=== PATIENT | male | born 1955 | race Two or more races ===

== ENCOUNTER → 2024-04-22 | Outpatient (CLI) | payer MEDICARE, OTHER ==
[~2024-04-22] MED LIST: LOSA-534 PO; METF-371 PO; PRAV20TA3
== END | disposition home or self-care (01) ==
LOC: LAB 08:53
PROVIDERS: ATTEND Urology
DX: R97.20 Elevated prostate specific antigen [PSA] (principal)
CPT/HCPCS: 84153

== ENCOUNTER 2024-11-19 13:59 | Inpatient (IN) | payer MEDICARE, OTHER ==
[~2024-11-19] VITALS: Ht 162.6 cm; Wt 65.0 kg
[~2024-11-19 13:59] MED LIST changes: +DOCU-94 PO; -METF-371 PO
[2024-11-19 14:14] VITALS: RESP 13; O2SAT 96
--- NOTE | 2024-11-19 15:39 | ED.PDOC ---
General HPI Comments 69-year-old male who presents to the ED via EMS complaint of blood in urine. Patient is bed-bound and nonverbal status post brain surgery and presents with spouse who states that patient has Thorpe catheter in place and states today she noticed dark red blood in Thorpe catheter. Patient's spouse called primary care provider and was told to come to the ED further evaluation. Patient in the ED has Thorpe catheter in place for history of enlarged prostate and urinary retention and has noted bloody urine draining into Thorpe bag but no associated blood clots. Patient's spouse states that patient has had a Thorpe in place since February and has a history of recurrent UTIs and history of kidney stones since Thorpe catheter was placed. Patient in the ED otherwise has stable vitals including blood pressure 130/66 started 7.9 F heart rate 85 and O2 sat of 95% on room air. Chief Complaint: Urinary Time Seen by MD: 15:36 Reviewed notes: Medications, Allergies Allergies: Coded Allergies: NO KNOWN ALLERGIES (Unverified , 03/15/24) Home Meds Reported Medications Docusate Sodium (Colace) 100 Mg Cap, 1 CAP PO BID, #30 CAP 06/26/24 Pravastatin Sodium (PRAVACHOL TABLET) 20 Mg Tb, for HU 03/16/24 Losartan Potassium (Losartan Potassium) 50 Mg Tab, 1 TAB PO DAILY 03/16/24 Information Source: Patient Mode of Arrival: EMS Past Medical History PAST MEDICAL HISTORY: CVA Past Medical History (Other): BPH Surgical History: Denies all surgeries Family History Family History: Reviewed,noncontributory to illness Social History Smoker: Non-Smoker Alcohol: Denies ETOH Use Drugs: Denies Drug Use Lives In: Home, Assisted Care Unable to Obtain due to: Altered Mental Status Physical Exam General Appearance: No Apparent Distress HEENT: PERRL/EOMI, Other (Moist mucous membranes.) Neck: Full Range of Motion, Non-Tender, Normal Inspection, Supple Respiratory: Lungs Clear, No Accessory Muscle Use, No Respiratory Distress, Normal Breath Sounds Cardiovascular: No Edema, No JVD, Regular Rate/Rhythm Breast Exam: Deferred Gastrointestinal: Non Tender, Soft Genitalia: Other (Thorpe catheter in place. Bloody urine in the collection bag.) Pelvic: Deferred Rectal: Deferred Extremities: Non-tender, No pedal edema Neurologic: Alert, Other (Nonverbal) Cerebellar Function: NOT DONE Reflexes: NOT DONE Skin: Dry, Normal Color, Warm Lymphatic: NOT DONE Was a procedure done? Was a procedure done?: No Differential Diagnosis Kidney stone (Female): N/A Kidney stone (Male): Pyelonephritis, Urolithiasis, Urinary tract infection Penile/Scrotal: N/A Urinary Problem (Male): Prostatitis, Renal Failure, Urethritis, Other (hydronephrosis, sepsis) Urinary Problem (Female): N/A X-Ray, Labs, Meds, VS Vital Signs Date Time Temp Pulse Resp B/P (MAP) Pulse Ox O2 Delivery O2 Flow Rate FiO2 11/19/24 18:14 61 13 138/75 11/19/24 18:00 61 13 138/75 (96) 94 11/19/24 17:44 63 17 138/82 11/19/24 16:14 64 16 144/69 (94) 96 11/19/24 14:14 13 96 Room Air* 0 21 11/19/24 14:14 98.6 69 13 119/73 (88) 96 98.6 11/19/24 14:04 97.9 85 15 130/66 95 97.9 Lab Test 11/19/24 16:49 11/19/24 14:19 Range/Units White Blood Count 4.7 4.4-10.8 10^3/uL Red Blood Count 5.13 4.5-5.90 10^6/uL Hemoglobin 15.8 13.5-17.5 g/dL Hematocrit 44.6 41.0-53.0 % Mean Corpuscular Volume 86.9 80.0-100.0 fL Mean Corpuscular Hemoglobin 30.8 28.0-32.0 pg Mean Corpuscular Hemoglobin Concent 35.4 32.0-36.0 g/dL Red Cell Distribution Width 15.1 H 11.8-14.3 % Platelet Count 152 140-450 10^3/uL Mean Platelet Volume 7.4 6.9-10.8 fL Neutrophils (%) (Auto) 60.9 37.0-80.0 % Lymphocytes (%) (Auto) 27.3 10.0-50.0 % Monocytes (%) (Auto) 9.3 0.0-12.0 % Eosinophils (%) (Auto) 1.2 0.0-7.0 % Basophils (%) (Auto) 1.3 0.0-2.0 % Neutrophils # (Auto) 2.8 1.6-8.6 10 ^3/uL Lymphocytes # (Auto) 1.3 0.4-5.4 10 ^3/uL Monocytes # (Auto) 0.4 0-1.3 10 ^3/uL Eosinophils # (Auto) 0.1 0-0.8 10 ^3/uL Basophils # (Auto) 0.1 0-0.2 10 ^3/uL Nucleated Red Blood Cells 0.4 % Sodium Level 136 136-145 mmol/L Potassium Level 4.4 3.5-5.1 mmol/L Chloride Level 103 98-107 mmol/L Carbon Dioxide Level 26 20-31 mmol/L Anion Gap 7 5-15 Blood Urea Nitrogen 15 9-23 mg/dL Creatinine 0.73 0.700-1.30 mg/dL Glomerular Filtration Rate Calc 98 >90 mL/min BUN/Creatinine Ratio 20.5 H 10.0-20.0 Serum Glucose 75 74-106 mg/dL Lactic Acid Level 1.1 0.4-2.0 mmol/L Calcium Level 8.8 8.7-10.4 mg/dL Urine Color Light-red Yellow Urine Clarity Ex.turbid Clear Urine pH 7.0 5.0-9.0 Urine Specific [place] 1.009 1.001-1.035 Urine Protein Trace H Negative Urine Ketones Negative Negative Urine Blood 3+ H Negative /uL Urine Nitrite Negative Negative Urine Bilirubin Negative Negative Urine Urobilinogen Normal Negative mg/dL Urine Leukocyte Esterase 3+ Negative /uL Urine RBC 4818 0 - 3 /hpf Urine WBC Clumps Present None Seen /hpf Urine Microscopic WBC 418 H 0-3 /HPF Urine Squamous Epithelial Cells None seen <5 /hpf Urine Bacteria None seen None Seen /hpf Urine Glucose Normal Normal mg/dL Current Medications Medications (Trade) Dose Ordered Sig/Joseluis Route Start Time Stop Time Status Last Admin Sodium Chloride 1,000 ml @ 1,000 mls/hr Q1H ONCE IV 11/19/24 16:15 11/19/24 17:14 DC 11/19/24 17:18 Meropenem 50 ml @ 50 mls/hr ONCE ONCE IV 11/19/24 16:15 11/19/24 17:14 DC 11/19/24 17:18 Morphine Sulfate 4 mg ONCE ONCE IV 11/19/24 17:30 11/19/24 17:31 DC 11/19/24 17:44 Ondansetron HCl (Zofran) 4 mg ONCE ONCE IV 11/19/24 17:30 11/19/24 17:31 DC 11/19/24 17:[address] [address] Ph: [phone] DIAGNOSTIC IMAGING Diagnostic Imaging Report : [id number] Signed PATIENT: MARIANA ZAMARRIPA ACCT: [id number] UNIT: [id number] : 1955 LOC: ER ROOM / BED: / AGE / SEX: 69 / M ADM STATUS: REG ER SERVICE 1608 ORDERING PHYSICIAN: JENNIFFER DOVE MD PROCEDURE(s): ABPL - CT AB PEL WO CON-NO ORAL OR IV REASON: hematuria ORDER NUMBER(s): [id number], ACCESSION NUMBER(s): [id number] Exam: CT CT AB PEL WO CON-NO ORAL OR IV History: hematuria Comparison Study: CT CT AB PEL WO CON-NO ORAL OR IV on DOS: 03/15/24 TECHNIQUE: Multidetector CT of the abdomen pelvis without IV contrast. Axial, coronal and sagittal multiplanar reformats were obtained from the axial data set by the technologist. Radiation Dose Information: CT Dose: CTDI volume is 6.59 mGy. Dose-length product is 3.92 mGy*cm FINDINGS: Bilateral lower lobe ground glass and solid opacities with bilateral posterior lower lobe pleural thickening. Partially visualized heart is unremarkable. Liver, spleen, gallbladder, pancreas and adrenal glands unremarkable. 1.6 cm right renal upper pole cysts. Mild bilateral hydro nephrosis with no obstructing calculus noted. Otherwise, kidneys and ureters unremarkable. Minimally distended bladder loss of in the sludge is most likely urinary partially visualized thorpe catheter terminating within the prostatic urethra. Enlarged prostate measuring 4.3 x 5.1 by 5.7 cm. Stomach is unremarkable. Small bowel loops are unremarkable. Appendix is not definitely visualized. Large amount of fecal material within the colon with asymmetric Posterior Distal rectal wall thickening. There is perirectal edema. No evidence of intraperitoneal free air. No evidence of aortic aneurysm. Heavy atherosclerotic calcification of the aorta and bilateral iliacs. No significant lymphadenopathy. Fluid/ cystic structure within the right inguinal canal measuring up to 2.5 x 3.8 by 4.2 cm. Mild lower back subcutaneous fat stranding. Diffuse demineralization. Severe degenerative changes of bilateral SI joints. IMPRESSION: Bilateral lower lobe ground-glass opacities which may represent atelectasis with infectious/inflammatory process not excluded. Constipation with perirectal fat stranding which may represent stercoral colitis. Mild distal rectal wall thickening which may be due to inadequate distention with neoplasm not excluded. Proctoscopy is recommended for evaluation. Enlarged prostate recommend correlation with PSA. Malpositioned thorpe catheter terminating within the prostatic urethra. Recommend repositioning. Mild bilateral hydronephrosis with no obstructing calculus noted. ATED BY: NANCY CARTY DO DICTATED DATE/TIME: 11/19/241702 SIGNED BY: NANCY CARTY DO SIGNED DATE/TIME: 11/19/241702 CC: X-Ray, Labs, Meds, VS Comment 69-year-old male with a history of CVA, BPH, prior pseudomonal UTI and indwelling Thorpe catheter brought in by EMS from home for evaluation of bloody urine Vitals unremarkable Exam remarkable for indwelling Thorpe catheter with bloody urine in the collection bag Rhythm strip independently interpreted by me: Sinus rhythm, rate 5, no ectopy. CT abdomen and pelvis IMPRESSION: Bilateral lower lobe ground-glass opacities which may represent atelectasis with infectious/inflammatory process not excluded. Constipation with perirectal fat stranding which may represent stercoral c olitis. Mild distal rectal wall thickening which may be due to inadequate distention with neoplasm not excluded. Proctoscopy is recommended for evaluation. Enlarged prostate recommend correlation with PSA. Malpositioned thorpe catheter terminating within the prostatic urethra. Recommend repositioning. Mild bilateral hydronephrosis with no obstructing calculus noted. CBC, basic metabolic panel and lactate unremarkable. UA positive for blood, WBCs and RBCs Patient treated with the following in the ED: Existing Thorpe catheter was removed and new Thorpe catheter was inserted. Meropenem 1 g IV, 1 L 0.9 normal saline IV bolus On re-evaluation, exam is unchanged. Vitals were stable. Plan is to admit the patient for IV antibiotics, Urology evaluation. Time of 1ST Reevaluation: 19:00 Reevaluation 1ST: Improved Patient Education/Counseling: Other (Patient nonverbal) Family Education/Counseling: Diagnosis, Treatment SEPSIS Sepsis Screen Date sepsis recognized/suspect: Nov 19, 2024 Time Sepsis recognized/suspect: 1413 Recent Procedure: No On Antibiotic Therapy: No Respiratory Rate >20: No Heart Rate >90: No Temp<36 C (96.8 F) or >38.3 C: No SBP <90 or MAP <65 mmHG: No New Acute Mental Status Change: No Is the patient on CPAP, BIPAP,: No Physician Orders Blood Culture (11/19/24 16:08) Urine Bacterial Culture (11/19/24 16:08) Ct Ab Pel Wo Con-No Oral Or Iv (11/19/24 16:08) D/C Thorpe (11/19/24 17:48) Insert/Manage Urinary Catheter QSHIFT (11/19/24 17:48) Vital Signs Date Time Temp Pulse Resp B/P (MAP) Pulse Ox O2 Delivery O2 Flow Rate FiO2 11/19/24 18:14 61 13 138/75 11/19/24 18:00 61 13 138/75 (96) 94 11/19/24 17:44 63 17 138/82 11/19/24 16:14 64 16 144/69 (94) 96 11/19/24 14:14 13 96 Room Air* 0 21 11/19/24 14:14 98.6 69 13 119/73 (88) 96 98.6 11/19/24 14:04 97.9 85 15 130/66 95 97.9 Laboratory Tests Test 11/19/24 16:49 Lactic Acid Level 1.1 mmol/L (0.4-2.0) White Blood Count 4.7 10^3/uL (4.4-10.8) Medications Medications Dose Ordered Sig/Joseluis Route Start Time Stop Time Status Last Admin Dose Admin Meropenem 50 ml @ 50 mls/hr ONCE ONCE IV 11/19/24 16:15 11/19/24 17:14 DC 11/19/24 17:18 Morphine Sulfate 4 mg ONCE ONCE IV 11/19/24 17:30 11/19/24 17:31 DC 11/19/24 17:44 Ondansetron HCl 4 mg ONCE ONCE IV 11/19/24 17:30 11/19/24 17:31 DC 11/19/24 17:41 Sodium Chloride 1,000 ml @ 1,000 mls/hr Q1H ONCE IV 11/19/24 16:15 11/19/24 17:14 DC 11/19/24 17:18 Departure 1 Departure Time of Disposition: 19:00 Impression: Primary Impression: Complication of Thorpe catheter Additional Impressions: UTI (urinary tract infection) Stercoral colitis Disposition: ADMITTED INPATIENT Admit to: Med Surg Condition: Guarded Critical Care Note Critical Care Time?: No Stability Stability form required: No Heart Score Heart Score: Heart Score Response (Comments) Value History N/A 0 EKG N/A 0 Age N/A 0 Risk Factors N/A 0 Troponin N/A 0 Total 0 I personally scribed for JENNIFFER DOVE MD ([facility]) on 11/19/24 at 15:38. Electronically submitted by Grayson Peralta ([facility]). I personally scribed for JENNIFFER DOVE MD ([email or web address]) on 11/19/24 at 15:43. Electronically submitted by Grayson Peralta ([facility] I personally scribed for JENNIFFER DOVE MD ([email or web address]) on 11/19/24 at 19:26. Electronically submitted by Grayson Peralta ([facility]). JENNIFFER DOVE MD Nov 19, 2024 15:38
[2024-11-19 17:00] LABS: Urine Protein, UAD TRACE (Negative); Urine WBC Clumps PRESENT /hpf (None Seen)
[2024-11-19 17:03] LABS: Hematocrit 44.6 % (41.0-53.0); Hemoglobin 15.8 g/dL (13.5-17.5); Mean Corpuscular Hemoglobin 30.8 pg (28.0-32.0); Mean Corpuscular Volume 86.9 fL (80.0-100.0); Nucleated Red Blood Cells % 0.4 %
--- NOTE | 2024-11-19 17:06 | DVH ---
Exam: CT CT AB PEL WO CON-NO ORAL OR IV History: hematuria Comparison Study: CT CT AB PEL WO CON-NO ORAL OR IV on DOS: 03/15/24 TECHNIQUE: Multidetector CT of the abdomen pelvis without IV contrast. Axial, coronal and sagittal mu ltiplanar reformats were obtained from the axial data set by the technologist. Radiation Dose Information: CT Dose: CTDI volume is 6.59 mGy. Dose-length product is 3.92 mGy*cm FINDINGS: Bilateral lower lobe ground glass and solid opacities with bilateral posterior lower lobe pleural thi ckening. Partially visualized heart is unremarkable. Liver, spleen, gallbladder, pancreas and adrenal glands unremarkable. 1.6 cm right renal upper pole cysts. Mild bilateral hydro nephrosis with no obstructing calculus note d. Otherwise, kidneys and ureters unremarkable. Minimally distended bladder loss of in the sludge is most likely urinary partially visualized thorpe catheter terminating within the prostatic urethra. En larged prostate measuring 4.3 x 5.1 by 5.7 cm. Stomach is unremarkable. Small bowel loops are unremarkable. Appendix is not definitely visualized. Large amount of fecal material within the colon with asymmetric Posterior Distal rectal wall thicken ing. There is perirectal edema. No evidence of intraperitoneal free air. No evidence of aortic aneurysm. Heavy atherosclerotic calcification of the aorta and bilateral iliacs . No significant lymphadenopathy. Fluid/ cystic structure within the right inguinal canal measuring up to 2.5 x 3.8 by 4.2 cm. Mild lower back subcutaneous fat stranding. Diffuse demineralization. Severe degenerative changes of bilateral SI joints. IMPRESSION: Bilateral lower lobe ground-glass opacities which may represent atelectasis with infectious/inflammat ory process not excluded. Constipation with perirectal fat stranding which may represent stercoral colitis. Mild distal rectal wall thickening which may be due to inadequate distention with neoplasm not exclu ded. Proctoscopy is recommended for evaluation. Enlarged prostate recommend correlation with PSA. Malpositioned thorpe catheter terminating within the prostatic urethra. Recommend repositioning. Mild bilateral hydronephrosis with no obstructing calculus noted.
[2024-11-19 17:14] LABS: Chloride 103 mmol/L (98-107); Potassium 4.4 mmol/L (3.5-5.1); Sodium 136 mmol/L (136-145)
[2024-11-19 17:15] LABS: Anion Gap 7 (5-15); Carbon Dioxide 26 mmol/L (20-31)
[2024-11-19 17:16] LABS: Calcium 8.8 mg/dL (8.7-10.4)
[2024-11-19] MEDS: MEROPENEM 1GM IVPB 50 ML IV ONE (17:18)
[2024-11-19] MEDS: SODIUM CHLORIDE 0.9% 1,000 ML IV ONE (17:18)
[2024-11-19 17:20] LABS: BUN/Creatinine Ratio 20.5 (10.0-20.0); Blood Urea Nitrogen 15 mg/dL (9-23); Glucose 75 mg/dL (74-106)
[2024-11-19] MEDS: ONDANSETRON HCL 4 MG/2 ML VIAL IV ONE (17:41)
[2024-11-19] MEDS: MORPHINE SULFATE 4 MG/ML SYR/VIAL IV ONE (17:44)
[2024-11-19] MEDS ORDERED: DEXTROSE (50%) 50ML SYRG IV PRN (18:45)
[2024-11-19] MEDS ORDERED: ONDANSETRON HCL 4 MG/2 ML VIAL IV PRN (18:45)
[2024-11-19 21:28] VITALS: BP 125/78; PULSE 82; RESP 17; O2SAT 91
[2024-11-19 21:40] VITALS: BP 125/78; PULSE 82; RESP 17; TEMP 85.1; O2SAT 91
[2024-11-19] MEDS: ACCU-CHEK COMFORT CURVE STRIP VI SCH (22:00)
[2024-11-19] MEDS: ACETAMINOPHEN 325 MG TAB PO PRN (22:28)
[2024-11-19] MEDS: PRAVASTATIN SODIUM 20 MG TAB PO SCH (22:28)
[2024-11-19] MEDS: InsuLIN REG 1unit/0.01ml Soln (100units/ml) SC SCH (22:46)
--- NOTE | 2024-11-19 23:12 | DVHHP2 ---
History of Present Illness Reason for Visit: Blood in the urine History of Present Illness 69-year-old male presents for evaluation of blood in the urine. Patient with a chronic Thorpe catheter presents after his noticed blood in the urine for the past couple of days. During my assessment urine is clear no blood noted. Patient has a history hemorrhagic CVA, bed ridden and nonverbal. Past Medical History CVA, diabetes mellitus, dyslipidemia Past Surgical History None Family History Noncontributory Smoke: No ALCOHOL: none Drugs: None Lives: with Family Review of Systems Review of Systems Review of systems can not be completed, patient is nonverbal Allergies: Coded Allergies: NO KNOWN ALLERGIES (Unverified , 03/15/24) Medications Current Medications Medications Dose Ordered Sig/Joseluis Route Start Time Stop Time Status Last Admin Dose Admin Losartan Potassium 50 mg DAILY PO 11/20/24 10:00 Pravastatin Sodium 20 mg HS PO 11/19/24 22:00 11/19/24 22:28 20 MG Ceftriaxone Sodium 50 ml @ 100 mls/hr DAILY@09 IV 11/20/24 09:00 Diagnostic Test (Pha) 1 strip ACHS 11/19/24 22:00 11/19/24 22:00 1 STRIP Insulin Human Regular ACHS SC 11/19/24 22:00 11/19/24 22:46 2 UNITS Dextrose 50 ml UD PRN IV 11/19/24 18:45 Ondansetron HCl 4 mg Q4HP PRN IV 11/19/24 18:45 Acetaminophen 650 mg Q6HP PRN PO 11/19/24 18:45 11/19/24 22:28 650 MG Exam Vital Signs Vital Signs Date Time Temp Pulse Resp B/P (MAP) Pulse Ox O2 Delivery O2 Flow Rate FiO2 11/19/24 21:40 85.1 82 17 125/78 (94) 91 85.1 11/19/24 14:14 Room Air* 0 21 Exam Gen: 69-year-old male in no apparent distress Skin: Warm, dry, normal color and texture, no rash. HEENT: Normocephalic atraumatic, mucous membranes moist and pink. Neck: Cervical and supraclavicular nodes normal without enlargement, trachea is midline, thyroid gland is normal without masses. Pulmonary: Clear to auscultation and percussion bilaterally. Cardiac: Regular rate and rhythm. No murmur Abdomen: Soft, nontender, nondistended, bowel sounds present all 4 quadrants, no guarding, no rigidity, no organomegaly. Extremities: No cyanosis, clubbing, no edema Neuro: Nonverbal Labs/Xrays ORDERING PHYSICIAN: JENNIFFER DOVE MD PROCEDURE(s): ABPL - CT AB PEL WO CON-NO ORAL OR IV REASON: hematuria ORDER NUMBER(s): [id number], ACCESSION NUMBER(s): [id number] Exam: CT CT AB PEL WO CON-NO ORAL OR IV History: hematuria Comparison Study: CT CT AB PEL WO CON-NO ORAL OR IV on DOS: 03/15/24 TECHNIQUE: Multidetector CT of the abdomen pelvis without IV contrast. Axial, coronal and sagittal multiplanar reformats were obtained from the axial data set by the technologist. Radiation Dose Information: CT Dose: CTDI volume is 6.59 mGy. Dose-length product is 3.92 mGy*cm FINDINGS: Bilateral lower lobe ground glass and solid opacities with bilateral posterior lower lobe pleural thickening. Partially visualized heart is unremarkable. Liver, spleen, gallbladder, pancreas and adrenal glands unremarkable. 1.6 cm right renal upper pole cysts. Mild bilateral hydro nephrosis with no obstructing calculus noted. Otherwise, kidneys and ureters unremarkable. Minimally distended bladder loss of in the sludge is most likely urinary partially visualized thorpe catheter terminating within the prostatic urethra. Enlarged prostate measuring 4.3 x 5.1 by 5.7 cm. Stomach is unremarkable. Small bowel loops are unremarkable. Appendix is not definitely visualized. Large amount of fecal material within the colon with asymmetric Posterior Distal rectal wall thickening. There is perirectal edema. No evidence of intraperitoneal free air. No evidence of aortic aneurysm. Heavy atherosclerotic calcification of the aorta and bilateral iliacs. No significant lymphadenopathy. Fluid/ cystic structure within the right inguinal canal measuring up to 2.5 x 3.8 by 4.2 cm. Mild lower back subcutaneous fat stranding. Diffuse demineralization. Severe de generative changes of bilateral SI joints. IMPRESSION: Bilateral lower lobe ground-glass opacities which may represent atelectasis with infectious/inflammatory process not excluded. Constipation with perirectal fat stranding which may represent stercoral colitis. Mild distal rectal wall thickening which may be due to inadequate distention with neoplasm not excluded. Proctoscopy is recommended for evaluation. Enlarged prostate recommend correlation with PSA. Malpositioned thorpe catheter terminating within the prostatic urethra. Recommend repositioning. Mild bilateral hydronephrosis with no obstructing calculus noted. Labs Test 11/19/24 22:36 11/19/24 16:49 11/19/24 14:19 Range/Units POC Glucose 137 H 70-106 mg/dl White Blood Count 4.7 4.4-10.8 10^3/uL Red Blood Count 5.13 4.5-5.90 10^6/uL Hemoglobin 15.8 13.5-17.5 g/dL Hematocrit 44.6 41.0-53.0 % Mean Corpuscular Volume 86.9 80.0-100.0 fL Mean Corpuscular Hemoglobin 30.8 28.0-32.0 pg Mean Corpuscular Hemoglobin Concent 35.4 32.0-36.0 g/dL Red Cell Distribution Width 15.1 H 11.8-14.3 % Platelet Count 152 140-450 10^3/uL Mean Platelet Volume 7.4 6.9-10.8 fL Neutrophils (%) (Auto) 60.9 37.0-80.0 % Lymphocytes (%) (Auto) 27.3 10.0-50.0 % Monocytes (%) (Auto) 9.3 0.0-12.0 % Eosinophils (%) (Auto) 1.2 0.0-7.0 % Basophils (%) (Auto) 1.3 0.0-2.0 % Neutrophils # (Auto) 2.8 1.6-8.6 10 ^3/uL Lymphocytes # (Auto) 1.3 0.4-5.4 10 ^3/uL Monocytes # (Auto) 0.4 0-1.3 10 ^3/uL Eosinophils # (Auto) 0.1 0-0.8 10 ^3/uL Basophils # (Auto) 0.1 0-0.2 10 ^3/uL Nucleated Red Blood Cells 0.4 % Sodium Level 136 136-145 mmol/L Potassium Level 4.4 3.5-5.1 mmol/L Chloride Level 103 98-107 mmol/L Carbon Dioxide Level 26 20-31 mmol/L Anion Gap 7 5-15 Blood Urea Nitrogen 15 9-23 mg/dL Creatinine 0.73 0.700-1.30 mg/dL Glomerular Filtration Rate Calc 98 >90 mL/min BUN/Creatinine Ratio 20.5 H 10.0-20.0 Serum Glucose 75 74-106 mg/dL Lactic Acid Level 1.1 0.4-2.0 mmol/L Calcium Level 8.8 8.7-10.4 mg/dL Urine Color Light-red Yellow Urine Clarity Ex.turbid Clear Urine pH 7.0 5.0-9.0 Urine Specific [place] 1.009 1.001-1.035 Urine Protein Trace H Negative Urine Ketones Negative Negative Urine Blood 3+ H Negative /uL Urine Nitrite Negative Negative Urine Bilirubin Negative Negative Urine Urobilinogen Normal Negative mg/dL Urine Leukocyte Esterase 3+ Negative /uL Urine RBC 4818 0 - 3 /hpf Urine WBC Clumps Present None Seen /hpf Urine Microscopic WBC 418 H 0-3 /HPF Urine Squamous Epithelial Cells None seen <5 /hpf Urine Bacteria None seen None Seen /hpf Urine Glucose Normal Normal mg/dL SEPSIS Sepsis Screen Date sepsis recognized/suspect: Nov 19, 2024 Time Sepsis recognized/suspect: 1413 Recent Procedure: No On Antibiotic Therapy: No Respiratory Rate >20: No Heart Rate >90: No Temp<36 C (96.8 F) or >38.3 C: No SBP <90 or MAP <65 mmHG: No New Acute Mental Status Change: No Is the patient on CPAP, BIPAP,: No Physician Orders Blood Culture (11/19/24 16:08) Urine Bacterial Culture (11/19/24 16:08) Ct Ab Pel Wo Con-No Oral Or Iv (11/19/24 16:08) D/C Thorpe (11/19/24 17:48) Insert/Manage Urinary Catheter QSHIFT (11/19/24 17:48) Losartan Tablet (Cozaar Tablet) (11/20/24 10:00) Pravastatin Sodium Tablet (Pravachol Tab (11/19/24 22:00) Consistent Carb(Ccho)Diabetes (11/20/24 Breakfast) Ceftriaxone 1gm/50ml (Rocephin) (11/20/24 09:00) Basic Metabolic Panel (11/20/24 04:00) Glucose Blood (Accu-Chek Comfort Curve T (11/19/24 22:00) Insulin R (Human) (Insulin R) (11/19/24 22:00) Dextrose 50% Syringe (11/19/24 18:45) Admit (11/19/24 18:42) Ondansetron Hcl (Zofran) (11/19/24 18:45) Condition: Stable (11/19/24 18:42) Acetaminophen Tablet (Tylenol Tablet) (11/19/24 18:45) Bedrest With Bathroom Privileg (11/19/24 18:42) Vital Signs Date Time Temp Pulse Resp B/P (MAP) Pulse Ox O2 Delivery O2 Flow Rate FiO2 11/19/24 21:40 85.1 82 17 125/78 (94) 91 85.1 11/19/24 20:00 73 10 127/76 (93) 95 11/19/24 18:14 61 13 138/75 11/19/24 18:00 61 13 138/75 (96) 94 11/19/24 17:44 63 17 138/82 11/19/24 16:14 64 16 144/69 (94) 96 Laboratory Tests Test 11/19/24 16:49 Lactic Acid Level 1.1 mmol/L (0.4-2.0) White Blood Count 4.7 10^3/uL (4.4-10.8) Medications Medications Dose Ordered Sig/Joseluis Route Start Time Stop Time Status Last Admin Dose Admin Acetaminophen 650 mg Q6HP PRN PO 11/19/24 18:45 11/19/24 22:28 650 MG Diagnostic Test (Pha) 1 strip ACHS 11/19/24 22:00 11/19/24 22:00 1 STRIP Insulin Human Regular ACHS SC 11/19/24 22:00 11/19/24 22:46 2 UNITS Meropenem 50 ml @ 50 mls/hr ONCE ONCE IV 11/19/24 16:15 11/19/24 17:14 DC 11/19/24 17:18 50 MLS/HR Morphine Sulfate 4 mg ONCE ONCE IV 11/19/24 17:30 11/19/24 17:31 DC 11/19/24 17:44 4 MG Ondansetron HCl 4 mg ONCE ONCE IV 11/19/24 17:30 11/19/24 17:31 DC 11/19/24 17:41 4 MG Pravastatin Sodium 20 mg HS PO 11/19/24 22:00 11/19/24 22:28 20 MG Sodium Chloride 1,000 ml @ 1,000 mls/hr Q1H ONCE IV 11/19/24 16:15 11/19/24 17:14 DC 11/19/24 17:18 1,000 MLS/HR Assessment/Plan Assessment/Plan Assessment Complicated UTI Hematuria History of CVA, nonverbal Diabetes mellitus Plan Admit the patient to [facility] to the hospitalist Rene Urine bacterial culture pending Resume home medications Continue treatment per orders. Plan discussed with: Other My Orders Orders - TRISHA GARSIA Procedure Category Date Status Time Losartan Tablet PHA 11/20/24 In Process (Cozaar Tablet) 10:00 Pravastatin Sodium PHA 11/19/24 In Process Tablet (Pravachol Tab 22:00 Consistent DIET 11/20/24 Transmitted Carb(Ccho)Diabetes Breakfast Ceftriaxone 1gm/50ml PHA 11/20/24 In Process (Rocephin) 09:00 Basic Metabolic Panel LAB 11/20/24 Verified 04:00 Glucose Blood PHA 11/19/24 In Process (Accu-Chek Comfort 22:00 Insulin R (Human) PHA 11/19/24 In Process (Insulin R) 22:00 Dextrose 50% Syringe PHA 11/19/24 In Process 18:45 Admit ADMIT 11/19/24 Transmitted 18:42 Ondansetron Hcl PHA 11/19/24 In Process (Zofran) 18:45 Condition: Stable LISA 11/19/24 In Process 18:42 Acetaminophen Tablet PHA 11/19/24 In Process (Tylenol Tablet) 18:45 Bedrest With Bathroom LISA 11/19/24 In Process Privileg 18:42 Date of Service: Nov 19, 2024 Billing Provider: TRISHA GARSIA Common Visit Codes: [id number] INP/OBS CARE (MOD) TRISHA GARSIA Nov 19, 2024 23:12
[2024-11-20] VITALS (7 sets, daily range): BP systolic 98–130; BP diastolic 59–84; PULSE 51–68; RESP 16–18; TEMP 96–97.9; O2SAT 94–96
[2024-11-20 05:47] LABS: Chloride 106 mmol/L (98-107); Potassium 4.3 mmol/L (3.5-5.1); Sodium 137 mmol/L (136-145)
[2024-11-20 05:48] LABS: Anion Gap 8 (5-15); Carbon Dioxide 23 mmol/L (20-31)
[2024-11-20 05:49] LABS: Calcium 8.8 mg/dL (8.7-10.4)
[2024-11-20 05:53] LABS: BUN/Creatinine Ratio 11.0 (10.0-20.0); Glucose 77 mg/dL (74-106)
[2024-11-20 06:02] LABS: Blood Urea Nitrogen 8 mg/dL (9-23)
[2024-11-20] MEDS: LOSARTAN POTASSIUM 50 MG TAB PO SCH (09:18)
[2024-11-20] MEDS: DOCUSATE ORAL LIQUID 100 MG/10 ML UD GT SCH (09:18)
[2024-11-20] MEDS ORDERED: DOCUSATE SOD 100 MG CAP PO SCH (10:00)
--- NOTE | 2024-11-20 12:19 | DVHPN2 ---
Reviewed: Care Plan, H&P, Labs, Medications, Previous Orders, Radiology Changes from previous H/P or p: No Changes Objective Vitals Vital Signs Date Time Temp Pulse Resp B/P (MAP) Pulse Ox O2 Delivery O2 Flow Rate FiO2 11/20/24 09:18 124/84 11/20/24 09:00 97.6 51 17 96 97.6 11/19/24 21:28 Room Air* 0 21 Intake/Output Intake and Output 11/20/24 07:00 Intake Total 1504 ml Output Total 2400 ml Balance -896 ml Intake Oral 454 ml IV Total 1050 ml Output Urine Total 2400 ml Medications Current Medications Medications Dose Ordered Sig/Joseluis Route Start Time Stop Time Status Last Admin Dose Admin Losartan Potassium 50 mg DAILY PO 11/20/24 10:00 11/20/24 09:18 50 MG Pravastatin Sodium 20 mg HS PO 11/19/24 22:00 11/19/24 22:28 20 MG Ceftriaxone Sodium 50 ml @ 100 mls/hr DAILY@09 IV 11/20/24 09:00 11/20/24 09:17 100 MLS/HR Diagnostic Test (Pha) 1 strip ACHS 11/19/24 22:00 11/20/24 05:56 1 STRIP Insulin Human Regular ACHS SC 11/19/24 22:00 11/19/24 22:46 2 UNITS Dextrose 50 ml UD PRN IV 11/19/24 18:45 Ondansetron HCl 4 mg Q4HP PRN IV 11/19/24 18:45 Acetaminophen 650 mg Q6HP PRN PO 11/19/24 18:45 11/19/24 22:28 650 MG Docusate Sodium 100 mg BID GT 11/20/24 10:00 11/20/24 09:18 100 MG Laboratory Results Laboratory Tests 11/19/24 16:49 11/20/24 05:00 Chemistry Test 11/19/24 16:49 11/20/24 05:00 Calcium Level 8.8 mg/dL (8.7-10.4) 8.8 mg/dL (8.7-10.4) Urinalysis Test 11/19/24 14:19 Urine Color Light-red (Yellow) Urine Clarity Ex.turbid (Clear) Urine pH 7.0 (5.0-9.0) Urine Specific [place] 1.009 (1.001-1.035) Urine Protein Trace (Negative) H Urine Ketones Negative (Negative) Urine Blood 3+ /uL (Negative) H Urine Nitrite Negative (Negative) Urine Bilirubin Negative (Negative) Urine Urobilinogen Normal mg/dL (Negative) Urine Leukocyte Esterase 3+ /uL (Negative) Urine RBC 4818 /hpf (0 - 3) Urine WBC Clumps Present /hpf (None Seen) Urine Microscopic WBC 418 /HPF (0-3) H Urine Squamous Epithelial Cells None seen /hpf (<5) Urine Bacteria None seen /hpf (None Seen) Urine Glucose Normal mg/dL (Normal) Microbiology Microbiology Date/Time Source Procedure Growth Status 11/19/24 14:19 Urine - [place] Urine Culture - Preliminary Resulted Labs and/or images reviewed: Labs reviewed by me, Image(s) reviewed by me Assessment/Plan Assessment/Plan Sepsis secondary to urinary tract infection: Blood cultures pending urine cultures pending; history of Pseudomonas urine infection June 2024, started on meropenem, DC Rocephin History of CVA six years ago Chronically bedridden Hypercholesterolemia: Lipitor Diabetes: Insulin sliding scale History of previous tracheostomy Chronic malnutrition Chronic indwelling thorpe for the last four months\ Time spent 55 minutes Advanced care planning 20 minutes Patient is full code Plan discussed with: Patient Date of Service: Nov 20, 2024 Billing Provider: ABHAY GARNER MD Common Visit Codes: [id number] CARE 30-74 MIN ABHAY GARNER MD Nov 20, 2024 12:19
[2024-11-20] MEDS: MEROPENEM 1GM IVPB 50 ML IV SCH (12:52)
[2024-11-20] MEDS ORDERED: MULT-1018 PO (19:31)
[2024-11-20] MEDS ORDERED: ASCO1CHW PO (19:31)
[2024-11-21] VITALS (7 sets, daily range): BP systolic 115–140; BP diastolic 73–85; PULSE 52–67; RESP 16–18; TEMP 97.5–98.3; O2SAT 95–99
--- NOTE | 2024-11-21 10:22 | DVHPN2 ---
Reviewed: Care Plan, H&P, Labs, Medications, Previous Orders, Radiology Changes from previous H/P or p: No Changes Objective Vitals Vital Signs Date Time Temp Pulse Resp B/P (MAP) Pulse Ox O2 Delivery O2 Flow Rate FiO2 11/21/24 09:30 139/83 11/21/24 08:05 52 18 99 Room Air* 0 21 11/21/24 05:00 97.9 97.9 Intake/Output Intake and Output 11/21/24 07:00 Intake Total 1154 ml Output Total 2850 ml Balance -1696 ml Intake Oral 1054 ml IV Total 100 ml Output Urine Total 2850 ml Medications Current Medications Medications Dose Ordered Sig/Joseluis Route Start Time Stop Time Status Last Admin Dose Admin Losartan Potassium 50 mg DAILY PO 11/20/24 10:00 11/21/24 09:30 50 MG Pravastatin Sodium 20 mg HS PO 11/19/24 22:00 11/20/24 21:46 20 MG Diagnostic Test (Pha) 1 strip ACHS 11/19/24 22:00 11/21/24 05:38 1 STRIP Insulin Human Regular ACHS SC 11/19/24 22:00 11/20/24 12:53 3 UNITS Dextrose 50 ml UD PRN IV 11/19/24 18:45 Ondansetron HCl 4 mg Q4HP PRN IV 11/19/24 18:45 Acetaminophen 650 mg Q6HP PRN PO 11/19/24 18:45 11/20/24 22:04 650 MG Docusate Sodium 100 mg BID GT 11/20/24 10:00 11/21/24 09:29 100 MG Meropenem 50 ml @ 17 mls/hr Q8HR IV 11/20/24 14:00 11/21/24 05:38 17 MLS/HR Laboratory Results Laboratory Tests 11/19/24 16:49 11/20/24 05:00 Urinalysis Test 11/19/24 14:19 Urine Color Light-red (Yellow) Urine Clarity Ex.turbid (Clear) Urine pH 7.0 (5.0-9.0) Urine Specific [place] 1.009 (1.001-1.035) Urine Protein Trace (Negative) H Urine Ketones Negative (Negative) Urine Blood 3+ /uL (Negative) H Urine Nitrite Negative (Negative) Urine Bilirubin Negative (Negative) Urine Urobilinogen Normal mg/dL (Negative) Urine Leukocyte Esterase 3+ /uL (Negative) Urine RBC 4818 /hpf (0 - 3) Urine WBC Clumps Present /hpf (None Seen) Urine Microscopic WBC 418 /HPF (0-3) H Urine Squamous Epithelial Cells None seen /hpf (<5) Urine Bacteria None seen /hpf (None Seen) Urine Glucose Normal mg/dL (Normal) Microbiology Microbiology Date/Time Source Procedure Growth Status 11/19/24 16:40 Blood Blood Culture - Preliminary NO GROWTH AFTER 24 HOURS OF INCUBATION. Resulted 11/19/24 14:19 Urine - [place] Urine Culture - Preliminary Resulted Labs and/or images reviewed: Labs reviewed by me, Image(s) reviewed by me Assessment/Plan Assessment/Plan Sepsis secondary to urinary tract infection: Blood cultures negative, urine cultures mixed,; send another clean sample of urine for urine culture history of Pseudomonas urine infection June 2024, started on meropenem, DC Rocephin History of CVA six years ago Chronically bedridden Hypercholesterolemia: Lipitor Diabetes: Insulin sliding scale History of previous tracheostomy Chronic malnutrition Chronic indwelling thorpe for the last four months\ Time spent 55 minutes Advanced care planning 20 minutes Patient is full code Plan discussed with: Patient My Orders Orders - ABHAY GARNER MD Procedure Category Date Status Time Meropenem 1gm Ivpb PHA 11/20/24 In Process (Merrem 1gm/50ml) 14:00 Communication Order ORDERS 11/20/24 Transmitted 12:35 Apply Z-Guard LISA 11/20/24 In Process 12:52 Communication Order ORDERS 11/21/24 Verified 10:20 Date of Service: Nov 21, 2024 Billing Provider: ABHAY GARNER MD Common Visit Codes: [id number] INP/OBS CARE(HIGH) ABHAY GARNER MD Nov 21, 2024 10:22
[2024-11-22] VITALS (7 sets, daily range): BP systolic 109–139; BP diastolic 62–88; PULSE 61–72; RESP 18–20; TEMP 97.3–98.6; O2SAT 95–97
--- NOTE | 2024-11-22 10:55 | DVHPN2 ---
Reviewed: Care Plan, H&P, Labs, Medications, Previous Orders, Radiology Changes from previous H/P or p: No Changes Objective Vitals Vital Signs Date Time Temp Pulse Resp B/P (MAP) Pulse Ox O2 Delivery O2 Flow Rate FiO2 11/22/24 08:53 98.6 61 20 109/62 (78) 97 98.6 11/21/24 20:00 Room Air* 0 21 Intake/Output Intake and Output 11/22/24 07:00 Intake Total 500 ml Output Total 2350 ml Balance -1850 ml Intake Oral 500 ml Output Urine Total 2350 ml # Bowel Movements 2 Medications Current Medications Medications Dose Ordered Sig/Joseluis Route Start Time Stop Time Status Last Admin Dose Admin Losartan Potassium 50 mg DAILY PO 11/20/24 10:00 11/21/24 09:30 50 MG Pravastatin Sodium 20 mg HS PO 11/19/24 22:00 11/21/24 21:36 20 MG Diagnostic Test (Pha) 1 strip ACHS 11/19/24 22:00 11/22/24 05:50 1 STRIP Insulin Human Regular ACHS SC 11/19/24 22:00 11/21/24 13:49 2 UNITS Dextrose 50 ml UD PRN IV 11/19/24 18:45 Ondansetron HCl 4 mg Q4HP PRN IV 11/19/24 18:45 Acetaminophen 650 mg Q6HP PRN PO 11/19/24 18:45 11/22/24 00:21 650 MG Docusate Sodium 100 mg BID GT 11/20/24 10:00 11/21/24 21:36 100 MG Meropenem 50 ml @ 17 mls/hr Q8HR IV 11/20/24 14:00 11/22/24 05:50 17 MLS/HR Laboratory Results Laboratory Tests 11/19/24 16:49 11/20/24 05:00 Urinalysis Test 11/19/24 14:19 Urine Color Light-red (Yellow) Urine Clarity Ex.turbid (Clear) Urine pH 7.0 (5.0-9.0) Urine Specific [place] 1.009 (1.001-1.035) Urine Protein Trace (Negative) H Urine Ketones Negative (Negative) Urine Blood 3+ /uL (Negative) H Urine Nitrite Negative (Negative) Urine Bilirubin Negative (Negative) Urine Urobilinogen Normal mg/dL (Negative) Urine Leukocyte Esterase 3+ /uL (Negative) Urine RBC 4818 /hpf (0 - 3) Urine WBC Clumps Present /hpf (None Seen) Urine Microscopic WBC 418 /HPF (0-3) H Urine Squamous Epithelial Cells None seen /hpf (<5) Urine Bacteria None seen /hpf (None Seen) Urine Glucose Normal mg/dL (Normal) Microbiology Microbiology Date/Time Source Procedure Growth Status 11/19/24 16:40 Blood Blood Culture - Preliminary NO GROWTH AFTER 48 HOURS OF INCUBATION. Resulted 11/19/24 14:19 Urine - [place] Urine Culture - Preliminary Pseudomonas aeruginosa Resulted Labs and/or images reviewed: Labs reviewed by me, Image(s) reviewed by me Assessment/Plan Assessment/Plan Sepsis secondary to urinary tract infection: Blood cultures negative, urine cultures growing Pseudomonas aeruginosa sensitive to meropenem, continue meropenem History of CVA six years ago Chronically bedridden Hypercholesterolemia: Lipitor Diabetes: Insulin sliding scale History of previous tracheostomy Chronic malnutrition Chronic indwelling thorpe for the last four months Time spent 55 minutes Advanced care planning 20 minutes Patient is full code Iam at bed side, RN Emily is the gift packer Patient needs meropenem 1 g IV q.8 hours for three weeks, will think about going to senior care facility Plan discussed with: Patient My Orders Orders - ABHAY GARNER MD Procedure Category Date Status Time Urine Bacterial GIANNI 11/21/24 In Process Culture 18:03 Date of Service: Nov 22, 2024 Billing Provider: ABHAY GARNER MD Common Visit Codes: [id number] INP/OBS CARE(HIGH) ABHAY GARNER MD Nov 22, 2024 10:55
[2024-11-23] VITALS (8 sets, daily range): BP systolic 105–127; BP diastolic 61–75; PULSE 57–75; RESP 16–18; TEMP 97.4–98.8; O2SAT 93–96
--- NOTE | 2024-11-23 12:58 | DVHPN2 ---
Reviewed: Care Plan, H&P, Labs, Medications, Previous Orders, Radiology Changes from previous H/P or p: No Changes Objective Vitals Vital Signs Date Time Temp Pulse Resp B/P (MAP) Pulse Ox O2 Delivery O2 Flow Rate FiO2 11/23/24 09:56 113/66 11/23/24 09:00 98.2 57 17 95 98.2 11/23/24 08:00 Room Air* 0 21 Intake/Output Intake and Output 11/23/24 07:00 Intake Total 710 ml Output Total 2700 ml Balance -1990 ml Intake Oral 660 ml IV Total 50 ml Output Urine Total 2700 ml Medications Current Medications Medications Dose Ordered Sig/Joseluis Route Start Time Stop Time Status Last Admin Dose Admin Losartan Potassium 50 mg DAILY PO 11/20/24 10:00 11/23/24 09:56 50 MG Pravastatin Sodium 20 mg HS PO 11/19/24 22:00 11/22/24 21:23 20 MG Diagnostic Test (Pha) 1 strip ACHS 11/19/24 22:00 11/23/24 11:13 1 STRIP Insulin Human Regular ACHS SC 11/19/24 22:00 11/21/24 13:49 2 UNITS Dextrose 50 ml UD PRN IV 11/19/24 18:45 Ondansetron HCl 4 mg Q4HP PRN IV 11/19/24 18:45 Acetaminophen 650 mg Q6HP PRN PO 11/19/24 18:45 11/22/24 00:21 650 MG Docusate Sodium 100 mg BID GT 11/20/24 10:00 11/23/24 09:56 100 MG Meropenem 50 ml @ 17 mls/hr Q8HR IV 11/20/24 14:00 11/23/24 05:11 17 MLS/HR Laboratory Results Laboratory Tests 11/19/24 16:49 11/20/24 05:00 Urinalysis Test 11/19/24 14:19 Urine Color Light-red (Yellow) Urine Clarity Ex.turbid (Clear) Urine pH 7.0 (5.0-9.0) Urine Specific [place] 1.009 (1.001-1.035) Urine Protein Trace (Negative) H Urine Ketones Negative (Negative) Urine Blood 3+ /uL (Negative) H Urine Nitrite Negative (Negative) Urine Bilirubin Negative (Negative) Urine Urobilinogen Normal mg/dL (Negative) Urine Leukocyte Esterase 3+ /uL (Negative) Urine RBC 4818 /hpf (0 - 3) Urine WBC Clumps Present /hpf (None Seen) Urine Microscopic WBC 418 /HPF (0-3) H Urine Squamous Epithelial Cells None seen /hpf (<5) Urine Bacteria None seen /hpf (None Seen) Urine Glucose Normal mg/dL (Normal) Microbiology Microbiology Date/Time Source Procedure Growth Status 11/21/24 16:50 Urine - [place] Urine Culture - Preliminary Resulted 11/19/24 16:40 Blood Blood Culture - Preliminary NO GROWTH AFTER 72 HOURS OF INCUBATION. Resulted Labs and/or images reviewed: Labs reviewed by me, Image(s) reviewed by me Assessment/Plan Assessment/Plan Sepsis secondary to urinary tract infection: Blood cultures negative, urine cultures growing Pseudomonas aeruginosa sensitive to meropenem, continue meropenem History of CVA six years ago Chronically bedridden Hypercholesterolemia: Lipitor Diabetes: Insulin sliding scale History of previous tracheostomy Chronic malnutrition Chronic indwelling thorpe for the last four months Time spent 55 minutes Advanced care planning 20 minutes Patient is full code Iam at bed side, RN Emily is the general adjuster Patient needs meropenem 1 g IV q.8 hours for three weeks, does not want the patient to go to alf facility and requesting to be discharged home on home health. Plan discussed with: Other ( RN) Date of Service: Nov 23, 2024 Billing Provider: ABHAY GARNER MD Common Visit Codes: [id number] INP/OBS CARE(HIGH) ABHAY GARNER MD Nov 23, 2024 12:58
[2024-11-24 01:00] VITALS: BP 122/72; PULSE 56; RESP 18; TEMP 96.4; O2SAT 97
[2024-11-24 05:00] VITALS: BP 127/82; PULSE 61; RESP 18; TEMP 97.1; O2SAT 98
[2024-11-24 09:00] VITALS: BP 123/75; PULSE 53; RESP 12; TEMP 97; O2SAT 97
[2024-11-24 13:00] VITALS: BP 113/70; PULSE 56; RESP 14; TEMP 98; O2SAT 98
--- NOTE | 2024-11-24 13:39 | DVHPN2 ---
Reviewed: Care Plan, H&P, Labs, Medications, Previous Orders, Radiology Changes from previous H/P or p: No Changes Objective Vitals Vital Signs Date Time Temp Pulse Resp B/P (MAP) Pulse Ox O2 Delivery O2 Flow Rate FiO2 11/24/24 09:23 154/86 11/24/24 09:00 97.0 53 12 97 97.0 11/24/24 08:15 Room Air* 0 21 Intake/Output Intake and Output 11/24/24 07:00 Intake Total 1680 ml Output Total 1550 ml Balance 130 ml Intake Oral 1580 ml IV Total 100 ml Output Urine Total 1550 ml Medications Current Medications Medications Dose Ordered Sig/Joseluis Route Start Time Stop Time Status Last Admin Dose Admin Losartan Potassium 50 mg DAILY PO 11/20/24 10:00 11/24/24 09:23 50 MG Pravastatin Sodium 20 mg HS PO 11/19/24 22:00 11/23/24 21:21 20 MG Diagnostic Test (Pha) 1 strip ACHS 11/19/24 22:00 11/24/24 11:29 1 STRIP Insulin Human Regular ACHS SC 11/19/24 22:00 11/21/24 13:49 2 UNITS Dextrose 50 ml UD PRN IV 11/19/24 18:45 Ondansetron HCl 4 mg Q4HP PRN IV 11/19/24 18:45 Acetaminophen 650 mg Q6HP PRN PO 11/19/24 18:45 11/22/24 00:21 650 MG Docusate Sodium 100 mg BID GT 11/20/24 10:00 11/24/24 09:23 100 MG Meropenem 50 ml @ 17 mls/hr Q8HR IV 11/20/24 14:00 11/24/24 05:45 17 MLS/HR Laboratory Results Laboratory Tests 11/19/24 16:49 11/20/24 05:00 Urinalysis Test 11/19/24 14:19 Urine Color Light-red (Yellow) Urine Clarity Ex.turbid (Clear) Urine pH 7.0 (5.0-9.0) Urine Specific [place] 1.009 (1.001-1.035) Urine Protein Trace (Negative) H Urine Ketones Negative (Negative) Urine Blood 3+ /uL (Negative) H Urine Nitrite Negative (Negative) Urine Bilirubin Negative (Negative) Urine Urobilinogen Normal mg/dL (Negative) Urine Leukocyte Esterase 3+ /uL (Negative) Urine RBC 4818 /hpf (0 - 3) Urine WBC Clumps Present /hpf (None Seen) Urine Microscopic WBC 418 /HPF (0-3) H Urine Squamous Epithelial Cells None seen /hpf (<5) Urine Bacteria None seen /hpf (None Seen) Urine Glucose Normal mg/dL (Normal) Microbiology Microbiology Date/Time Source Procedure Growth Status 11/21/24 16:50 Urine - [place] Urine Culture - Final Complete 11/19/24 16:40 Blood Blood Culture - Preliminary NO GROWTH AFTER 72 HOURS OF INCUBATION. Resulted Labs and/or images reviewed: Labs reviewed by me, Image(s) reviewed by me Assessment/Plan Assessment/Plan Sepsis secondary to urinary tract infection: Blood cultures negative, urine cultures growing Pseudomonas aeruginosa sensitive to meropenem, continue meropenem History of CVA six years ago Chronically bedridden Hypercholesterolemia: Lipitor Diabetes: Insulin sliding scale History of previous tracheostomy Chronic malnutrition Chronic indwelling thorpe for the last four months Time spent 57 minutes Advanced care planning 20 minutes Patient is full code Iam at bed side, RN Emily is the fruit and vegetable packer Patient needs meropenem 1 g IV q.8 hours for three weeks, does not want the patient to go to [facility] facility and requesting to be discharged home on home health. Plan discussed with: Patient Date of Service: Nov 24, 2024 Billing Provider: ABHAY GARNER MD Common Visit Codes: [id number] INP/OBS CARE(HIGH) ABHAY GARNER MD Nov 24, 2024 13:39
[2024-11-24 17:00] VITALS: BP 113/63; PULSE 63; RESP 12; TEMP 98.9; O2SAT 91
[2024-11-24 21:00] VITALS: BP 117/88; PULSE 66; RESP 16; TEMP 98.7; O2SAT 94
[2024-11-25] VITALS (8 sets, daily range): BP systolic 118–134; BP diastolic 75–87; PULSE 58–71; RESP 16–18; TEMP 36.4; O2SAT 95–100
--- NOTE | 2024-11-25 10:22 | DVHPN2 ---
Reviewed: Care Plan, H&P, Labs, Medications, Previous Orders, Radiology Changes from previous H/P or p: No Changes Objective Vitals Vital Signs Date Time Temp Pulse Resp B/P (MAP) Pulse Ox O2 Delivery O2 Flow Rate FiO2 11/25/24 09:27 123/75 11/25/24 07:39 Room Air* 0 21 11/25/24 05:00 97.6 71 16 95 97.6 Intake/Output Intake and Output 11/25/24 07:00 Intake Total 1010 ml Output Total 2500 ml Balance -1490 ml Intake Oral 910 ml IV Total 100 ml Output Urine Total 2500 ml # Bowel Movements 1 Medications Current Medications Medications Dose Ordered Sig/Joseluis Route Start Time Stop Time Status Last Admin Dose Admin Losartan Potassium 50 mg DAILY PO 11/20/24 10:00 11/25/24 09:27 50 MG Pravastatin Sodium 20 mg HS PO 11/19/24 22:00 11/24/24 21:37 20 MG Diagnostic Test (Pha) 1 strip ACHS 11/19/24 22:00 11/25/24 06:22 1 STRIP Insulin Human Regular ACHS SC 11/19/24 22:00 11/21/24 13:49 2 UNITS Dextrose 50 ml UD PRN IV 11/19/24 18:45 Ondansetron HCl 4 mg Q4HP PRN IV 11/19/24 18:45 Acetaminophen 650 mg Q6HP PRN PO 11/19/24 18:45 11/22/24 00:21 650 MG Docusate Sodium 100 mg BID GT 11/20/24 10:00 11/25/24 09:26 100 MG Meropenem 50 ml @ 17 mls/hr Q8HR IV 11/20/24 14:00 11/25/24 06:28 17 MLS/HR Laboratory Results Laboratory Tests 11/19/24 16:49 11/20/24 05:00 Urinalysis Test 11/19/24 14:19 Urine Color Light-red (Yellow) Urine Clarity Ex.turbid (Clear) Urine pH 7.0 (5.0-9.0) Urine Specific [place] 1.009 (1.001-1.035) Urine Protein Trace (Negative) H Urine Ketones Negative (Negative) Urine Blood 3+ /uL (Negative) H Urine Nitrite Negative (Negative) Urine Bilirubin Negative (Negative) Urine Urobilinogen Normal mg/dL (Negative) Urine Leukocyte Esterase 3+ /uL (Negative) Urine RBC 4818 /hpf (0 - 3) Urine WBC Clumps Present /hpf (None Seen) Urine Microscopic WBC 418 /HPF (0-3) H Urine Squamous Epithelial Cells None seen /hpf (<5) Urine Bacteria None seen /hpf (None Seen) Urine Glucose Normal mg/dL (Normal) Microbiology Microbiology Date/Time Source Procedure Growth Status 11/21/24 16:50 Urine - [place] Urine Culture - Final Complete 11/19/24 16:40 Blood Blood Culture - Final NO GROWTH AFTER 5 DAYS OF INCUBATION. Complete Labs and/or images reviewed: Labs reviewed by me, Image(s) reviewed by me Assessment/Plan Assessment/Plan Sepsis secondary to urinary tract infection: Blood cultures negative, urine cultures growing Pseudomonas aeruginosa sensitive to meropenem, continue meropenem 500 mg IV q.8 hours for one month by home health History of CVA six years ago Chronically bedridden Hypercholesterolemia: Lipitor Diabetes: Insulin sliding scale History of previous tracheostomy Chronic malnutrition Chronic indwelling thorpe for the last four months Time spent 57 minutes Advanced care planning 20 minutes Patient is full code Iam at bed side, RN Emily is the rotary driller helper Patient needs meropenem 1 g IV q.8 hours for three weeks, does not want the patient to go to long term facility and requesting to be discharged home on home health. Discharged home on home health today Plan discussed with: Patient My Orders Orders - ABHAY GARNER MD Procedure Category Date Status Time * Psychological Science Professor CONS 11/25/24 Transmitted Consult Refer To Home Health LISA 11/25/24 In Process 10:16 * Picc Line Consult CONS 11/25/24 Transmitted 10:16 Date of Service: Nov 25, 2024 Billing Provider: ABHAY GARNER MD Common Visit Codes: [id number] INP/OBS CARE(HIGH) ABHAY GARNER MD Nov 25, 2024 10:22
--- NOTE | 2024-11-25 10:28 | DVHDS2 ---
Discharge Summary Date of Admission Nov 19, 2024 at 18:42 Date of Discharge: Nov 25, 2024 Admitting Diagnosis Altered mental status Wounds: None Labs/Diagnostic Data: Laboratory Results Test 11/25/24 06:09 11/20/24 05:00 11/19/24 16:49 11/19/24 14:19 POC Glucose 82 mg/dl (70-106) Sodium Level 137 mmol/L (136-145) Potassium Level 4.3 mmol/L (3.5-5.1) Chloride Level 106 mmol/L (98-107) Carbon Dioxide Level 23 mmol/L (20-31) Anion Gap 8 (5-15) Blood Urea Nitrogen 8 mg/dL (9-23) Creatinine 0.73 mg/dL (0.700-1.30) Glomerular Filtration Rate Calc 98 mL/min (>90) BUN/Creatinine Ratio 11.0 (10.0-20.0) Serum Glucose 77 mg/dL (74-106) Calcium Level 8.8 mg/dL (8.7-10.4) White Blood Count 4.7 10^3/uL (4.4-10.8) Red Blood Count 5.13 10^6/uL (4.5-5.90) Hemoglobin 15.8 g/dL (13.5-17.5) Hematocrit 44.6 % (41.0-53.0) Mean Corpuscular Volume 86.9 fL (80.0-100.0) Mean Corpuscular Hemoglobin 30.8 pg (28.0-32.0) Mean Corpuscular Hemoglobin Concent 35.4 g/dL (32.0-36.0) Red Cell Distribution Width 15.1 % (11.8-14.3) Platelet Count 152 10^3/uL (140-450) Mean Platelet Volume 7.4 fL (6.9-10.8) Neutrophils (%) (Auto) 60.9 % (37.0-80.0) Lymphocytes (%) (Auto) 27.3 % (10.0-50.0) Monocytes (%) (Auto) 9.3 % (0.0-12.0) Eosinophils (%) (Auto) 1.2 % (0.0-7.0) Basophils (%) (Auto) 1.3 % (0.0-2.0) Neutrophils # (Auto) 2.8 10 ^3/uL (1.6-8.6) Lymphocytes # (Auto) 1.3 10 ^3/uL (0.4-5.4) Monocytes # (Auto) 0.4 10 ^3/uL (0-1.3) Eosinophils # (Auto) 0.1 10 ^3/uL (0-0.8) Basophils # (Auto) 0.1 10 ^3/uL (0-0.2) Nucleated Red Blood Cells 0.4 % Lactic Acid Level 1.1 mmol/L (0.4-2.0) Urine Color Light-red (Yellow) Urine Clarity Ex.turbid (Clear) Urine pH 7.0 (5.0-9.0) Urine Specific [place] 1.009 (1.001-1.035) Urine Protein Trace (Negative) Urine Ketones Negative (Negative) Urine Blood 3+ /uL (Negative) Urine Nitrite Negative (Negative) Urine Bilirubin Negative (Negative) Urine Urobilinogen Normal mg/dL (Negative) Urine Leukocyte Esterase 3+ /uL (Negative) Urine RBC 4818 /hpf (0 - 3) Urine WBC Clumps Present /hpf (None Seen) Urine Microscopic WBC 418 /HPF (0-3) Urine Squamous Epithelial Cells None seen /hpf (<5) Urine Bacteria None seen /hpf (None Seen) Urine Glucose Normal mg/dL (Normal) Other Laboratory Tests 11/20/24 05:00 11/19/24 16:49 Brief Hx & Hospital Course: 69-year-old male with a history of CVA six years ago chronically bedridden hypercholesterolemia diabetes history of previous a tracheotomy chronic malnutrition chronic indwelling [place] catheter for the last four months seen two months ago for complicated UTI treated with a meropenem brought back by for altered mental status and confusion and generalized weakness blood cultures negative urine cultures growing Pseudomonas started on meropenem 500 mg IV q.8 hours which he will receive for one month by home health. The Iam at bedside does not want the patient to go to snf facility. Discharged home on home health for IV antibiotics for one month general condition stable but poor at the time of discharge. Consults/Reason for consult None Operations or Procedures None Condition at Discharge: Poor Final Diagnosis/Problems List Sepsis secondary to urinary tract infection: Blood cultures negative, urine cultures growing Pseudomonas aeruginosa sensitive to meropenem, continue meropenem 500 mg IV q.8 hours for one month by home health History of CVA six years ago Chronically bedridden Hypercholesterolemia: Lipitor Diabetes: Insulin sliding scale History of previous tracheostomy Chronic malnutrition Chronic indwelling thorpe for the last four months Discharge Disposition: Home with Health Services Discharge Instruct/Medications Diet: Cardiac 2g Na,low cholest Activity: Bed rest Follow Up/Referral: Follow up with your primary Dr Clay all previous home meds Medications: Meropenem 500 mg IV q.8 hours for one month for complicated UTI Scheduled Docusate Sodium (Colace), 1 CAP PO BID, (Reported) Losartan Potassium (Losartan Potassium), 1 TAB PO DAILY, (Reported) Multiple Vitamin (Multivitamins), 1 TAB PO DAILY, (Reported) Miscellaneous Medications Ascorbic Acid (Vitamin C 250 mg), 1 CHW PO, (Reported) Pravastatin Sodium (Pravachol Tablet), (Reported) 39 (Time taken for discharge summary 39 minutes) Discharge Statement: "Patient was advised to return to the ER or call 911 if any headaches, dizziness, shortness of breath, chest pain, abdominal pain, bleeding, fevers, or worsening of medical condition. Patient was counseled about treatment plan, medications, possible side effects, patientverbalized understanding. All questions were answered to the best of my ability. This discharge took greater then 30 minutes in planning, reviewing documentation, counseling the patient, and discussing with other team members." ASSESSMENT ASSESSMENT Hospital Course Marginally improved Assessment Sepsis secondary to urinary tract infection: Blood cultures negative, urine cultures growing Pseudomonas aeruginosa sensitive to meropenem, continue meropenem 500 mg IV q.8 hours for one month by home health History of CVA six years ago Chronically bedridden Hypercholesterolemia: Lipitor Diabetes: Insulin sliding scale History of previous tracheostomy Chronic malnutrition Chronic indwelling thorpe for the last four months Date of Service: Nov 25, 2024 Billing Provider: ABHAY GARNER MD Common Visit Codes: [id number] DISCH DAY >30min ABHAY GARNER MD Nov 25, 2024 10:28
[2024-11-25 12:22] LABS: Hematocrit 46.7 % (41.0-53.0); Hemoglobin 16.2 g/dL (13.5-17.5); Mean Corpuscular Hemoglobin 30.4 pg (28.0-32.0); Mean Corpuscular Volume 87.5 fL (80.0-100.0); Nucleated Red Blood Cells % 0.2 %
[2024-11-25 12:30] LABS: INR 1.12 (0.9-1.15); Partial Thromboplastin Time 31.0 SEC (24.5-34.5); Prothrombin Time 11.7 sec (9.3-11.8)
--- NOTE | 2024-11-25 13:07 | MEDREC ---
[facility] ASP Intervention Section I [facility] ASP Intervention: Review courses of therapy (Consider D/C Abx. No growth on most recent cultures, patient has been on meropenem x5 days, temperature is not elevated.) HENRY OBREGON [facility] RESIDENT Nov 25, 2024 13:07
[2024-11-25] MEDS: LIDOCAINE 1% (LOCAL ANESTH.) PF 5ml SDV ID ONE (17:43)
[2024-11-25] MEDS: SODIUM CHLOR 0.9% PF (SALINE LOCK) 10ML VIAL/SYR IV SCH (21:38)
[2024-11-25] MEDS: ALBUTEROL SULF 2.5 MG/0.5ML(0.5%) NEB SOLN NEB PRN (22:07)
[2024-11-26 01:00] VITALS: BP 116/66; PULSE 59; RESP 17; TEMP 98; O2SAT 95
[2024-11-26 05:00] VITALS: BP 117/70; PULSE 66; RESP 17; TEMP 99.3; O2SAT 96
[2024-11-26 06:59] VITALS: O2SAT 97
[2024-11-26 09:00] VITALS: BP 116/70; PULSE 63; RESP 17; TEMP 97.9; O2SAT 97
--- NOTE | 2024-11-26 13:38 | DVHPN2 ---
Reviewed: Care Plan, H&P, Labs, Medications, Previous Orders, Radiology Changes from previous H/P or p: No Changes Objective Vitals Vital Signs Date Time Temp Pulse Resp B/P (MAP) Pulse Ox O2 Delivery O2 Flow Rate FiO2 11/26/24 09:00 97.9 63 17 116/70 (85) 97 97.9 11/26/24 06:59 Room Air 11/26/24 06:59 0 21 Intake/Output Intake and Output 11/26/24 07:00 Intake Total 1070 ml Output Total 2075 ml Balance -1005 ml Intake Oral 970 ml IV Total 100 ml Output Urine Total 2075 ml # Bowel Movements 2 Medications Current Medications Medications Dose Ordered Sig/Joseluis Route Start Time Stop Time Status Last Admin Dose Admin Losartan Potassium 50 mg DAILY PO 11/20/24 10:00 11/25/24 09:27 50 MG Pravastatin Sodium 20 mg HS PO 11/19/24 22:00 11/25/24 22:14 20 MG Diagnostic Test (Pha) 1 strip ACHS 11/19/24 22:00 11/26/24 11:15 1 STRIP Insulin Human Regular ACHS SC 11/19/24 22:00 11/21/24 13:49 2 UNITS Dextrose 50 ml UD PRN IV 11/19/24 18:45 Ondansetron HCl 4 mg Q4HP PRN IV 11/19/24 18:45 Acetaminophen 650 mg Q6HP PRN PO 11/19/24 18:45 11/26/24 11:00 650 MG Docusate Sodium 100 mg BID GT 11/20/24 10:00 11/26/24 10:22 100 MG Meropenem 50 ml @ 17 mls/hr Q8HR IV 11/20/24 14:00 11/26/24 05:30 17 MLS/HR Sodium Chloride 10 ml QSHIFT@10,22 IV 11/25/24 22:00 11/26/24 10:23 10 ML Albuterol 2.5 mg Q6HPRN PRN NEB 11/25/24 22:00 11/25/24 22:07 2.5 MG Laboratory Results Laboratory Tests 11/20/24 05:00 11/25/24 11:43 Urinalysis Test 11/19/24 14:19 Urine Color Light-red (Yellow) Urine Clarity Ex.turbid (Clear) Urine pH 7.0 (5.0-9.0) Urine Specific [place] 1.009 (1.001-1.035) Urine Protein Trace (Negative) H Urine Ketones Negative (Negative) Urine Blood 3+ /uL (Negative) H Urine Nitrite Negative (Negative) Urine Bilirubin Negative (Negative) Urine Urobilinogen Normal mg/dL (Negative) Urine Leukocyte Esterase 3+ /uL (Negative) Urine RBC 4818 /hpf (0 - 3) Urine WBC Clumps Present /hpf (None Seen) Urine Microscopic WBC 418 /HPF (0-3) H Urine Squamous Epithelial Cells None seen /hpf (<5) Urine Bacteria None seen /hpf (None Seen) Urine Glucose Normal mg/dL (Normal) Microbiology Microbiology Date/Time Source Procedure Growth Status 11/21/24 16:50 Urine - [place] Urine Culture - Final Complete 11/19/24 16:40 Blood Blood Culture - Final NO GROWTH AFTER 5 DAYS OF INCUBATION. Complete Labs and/or images reviewed: Labs reviewed by me, Image(s) reviewed by me Assessment/Plan Assessment/Plan Sepsis secondary to urinary tract infection: Blood cultures negative, urine cultures growing Pseudomonas aeruginosa sensitive to meropenem, continue meropenem 500 mg IV q.8 hours for one month by home health History of CVA six years ago Chronically bedridden Hypercholesterolemia: Lipitor Diabetes: Insulin sliding scale History of previous tracheostomy Chronic malnutrition Chronic indwelling thorpe for the last four months Time spent 57 minutes Advanced care planning 20 minutes Patient is full code Iam at bed side, RN Emily is the linux vmware administrator Patient needs meropenem 1 g IV q.8 hours for three weeks, does not want the patient to go to group home facility and requesting to be discharged home on home health. Discharged home on home health today social work manager arranging transportation Plan discussed with: Patient My Orders Orders - ABHAY GARNER MD Procedure Category Date Status Time Nursing Protocol Picc LISA 11/25/24 In Process 17:34 Change Dressing Prn LISA 11/25/24 In Process 17:34 Sodium Chloride Lock PHA 11/25/24 In Process (Saline Lock Ns) 22:00 Do Not Use Picc For [facility] 11/25/24 In Process Blood Cult 17:34 May Draw Blood From [facility] 11/25/24 In Process Picc 17:34 Ok To Use Picc [facility] 11/25/24 In Process 17:34 Change Picc Dressing LISA 11/25/24 In Process Q7 Days 17:34 * Turret Punch Operator CONS 11/26/24 Transmitted Consult Date of Service: Nov 26, 2024 Billing Provider: ABHAY GARNER MD Common Visit Codes: [id number] INP/OBS CARE(HIGH) ABHAY GARNER MD Nov 26, 2024 13:38
== END 2024-11-26 13:55 | disposition home or self-care (01) | DRG 698 ==
LOC: EDBD 13:59 → ER 14:00 → OVERFLOW 18:42 → WEST WING 21:27
PROVIDERS: ADMIT Family Medicine; ATTEND Family Medicine
PROC: 02HV33Z Insertion of Infusion Device into Superior Vena Cava, Percutaneous Approach (ICD-10-PCS; principal; 2024-11-25)
PROC: B548ZZA Ultrasonography of Superior Vena Cava, Guidance (ICD-10-PCS; 2024-11-25)
DX: T83.511A Infection and inflammatory reaction due to indwelling urethral catheter, initial encounter (principal); A41.52 Sepsis due to Pseudomonas; R53.2 Functional quadriplegia; E44.0 Moderate protein-calorie malnutrition; N30.01 Acute cystitis with hematuria; E78.00 Pure hypercholesterolemia, unspecified; E11.9 Type 2 diabetes mellitus without complications; K52.89 Other specified noninfective gastroenteritis and colitis; K59.00 Constipation, unspecified; Z68.25 Body mass index [BMI] 25.0-25.9, adult; Z79.899 Other long term (current) drug therapy; Z74.01 Bed confinement status; Z86.73 Personal history of transient ischemic attack (TIA), and cerebral infarction without residual deficits; Y84.8 Other medical procedures as the cause of abnormal reaction of the patient, or of later complication, without mention of misadventure at the time of the procedure; Y92.89 Other specified places as the place of occurrence of the external cause
CPT/HCPCS: 36415; 36569; 74176; 76937; 80048; 81001; 82962; 83605; 85025; 85610; 85730; 87040; 87086; 87088; 87186; 94640; G0378; J1815; J2185; J2405